=== PATIENT | male | born 1980 | race Caucasian/White ===

== ENCOUNTER → 2021-10-10 | Outpatient (CLI) | payer MEDICARE ==
[~2021-10-10] MED LIST: ATORVASTATIN CA10 MG PO; BACTRIM DS TAB1 EACH PO; ESOMEPRAZOLE MA40 M1 PO; GABAPENTIN TAB600 MG PO; LEVOTHYROXINE0.05 MG PO; PROAIR HFA0.09 MG/AC IH; PROLASTIN1000 MG/20 IV; SOTALOL HYDROCH80 MG PO; TRELEGY ELLIPT1 EACH IH
[2021-10-10 10:10] LABS: BASO # 0.06 K/mm3 (0.02-0.10); EOS # 0.22 K/mm3 (0.04-0.40); EOS % 2.7 % (0.0-4.0); HEMATOCRIT 46.9 % (42.0-52.0); HEMOGLOBIN 15.9 g/dL (13.5-18.0); LYMPH# 2.63 K/mm3 (1.50-4.00); MEAN CELL VOLUME 91 fl (78-100); MEAN CORPUSCULAR HEMOGLOBIN 31 pg (27-31); MEAN CORPUSCULAR HGB CONC 34 g/dL (33-37); MEAN PLATELET VOLUME 9.9 fl (7.4-10.4); MONO # 0.61 K/mm3 (0.20-0.80); NEU # 4.55 K/mm3 (1.40-6.50); PLATELET COUNT 245 K/mm3 (130-400); RED BLOOD COUNT 5.13 M/mm3 (4.20-5.60); RED CELL DISTRIBUTION WIDTH 12.7 % (11.5-14.5); WHITE BLOOD COUNT 8.1 K/mm3 (4.8-10.8)
[2021-10-10 10:51] LABS: POTASSIUM 4.1 mmol/L (3.5-5.1)
[2021-10-10 10:52] LABS: ALBUMIN 4.3 g/dL (3.5-5.0); CALCIUM 9.8 mg/dL (8.3-10.5); TOTAL BILIRUBIN 0.9 mg/dL (0.2-1.2); TOTAL PROTEIN 8.1 g/dL (6.4-8.3)
[2021-10-10 23:43] LABS: TESTOSTERONE 501 ng/dL (240-871)
== END ==
LOC: LAB 09:45
PROVIDERS: Internal Medicine
DX: K90.9 Intestinal malabsorption, unspecified (principal); K76.0 Fatty (change of) liver, not elsewhere classified; R73.03 Prediabetes; E03.9 Hypothyroidism, unspecified; N52.9 Male erectile dysfunction, unspecified

== ENCOUNTER 2021-10-18 23:41 | Emergency (ER) | payer MEDICARE ==
[~2021-10-18] VITALS: Ht 185.4 cm; Wt 100.0 kg
[2021-10-19] MEDS ORDERED: PROAIR HFA0.09 MG/AC IH (00:21)
[2021-10-19] MEDS ORDERED: ESOMEPRAZOLE MA40 M1 PO (00:21)
[2021-10-19] MEDS ORDERED: PROLASTIN1000 MG/20 IV (00:21)
[2021-10-19] MEDS ORDERED: SOTALOL HYDROCH80 MG PO (00:22)
[2021-10-19] MEDS ORDERED: BACTRIM DS TAB1 EACH PO (00:46)
[2021-10-19 01:02] VITALS: BP 117/90
[2021-10-19] MEDS ORDERED: GABAPENTIN TAB600 MG PO (01:08)
[2021-10-19] MEDS ORDERED: ATORVASTATIN CA10 MG PO (01:09)
[2021-10-19] MEDS ORDERED: LEVOTHYROXINE0.05 MG PO (01:09)
[2021-10-19] MEDS ORDERED: TRELEGY ELLIPT1 EACH IH (01:09)
== END 2021-10-19 01:02 | disposition home or self-care (01) ==
LOC: ED 23:41
DX: T81.40XA Infection following a procedure, unspecified, initial encounter (principal); J45.909 Unspecified asthma, uncomplicated; Z79.899 Other long term (current) drug therapy

== ENCOUNTER → 2021-11-06 | Outpatient (CLI) | payer MEDICARE | LOC: LAB 08:22 | DX: E55.9 Vitamin D deficiency, unspecified (principal) ==

== ENCOUNTER → 2021-12-06 | Outpatient (CLI) | payer MEDICARE | LOC: RAD 08:00 | DX: K76.0 Fatty (change of) liver, not elsewhere classified (principal); E88.01 Alpha-1-antitrypsin deficiency ==

== ENCOUNTER → 2022-01-01 | Outpatient (CLI) | payer MEDICARE ==
[2022-01-01 10:37] LABS: ALBUMIN 4.4 g/dL (3.5-5.0); POTASSIUM 4.3 mmol/L (3.5-5.1)
[2022-01-01 10:38] LABS: CALCIUM 9.5 mg/dL (8.3-10.5)
[2022-01-01 10:40] LABS: TOTAL PROTEIN 7.8 g/dL (6.4-8.3)
== END ==
LOC: LAB 08:53
PROVIDERS: Internal Medicine
DX: E88.01 Alpha-1-antitrypsin deficiency (principal); E03.9 Hypothyroidism, unspecified; K76.0 Fatty (change of) liver, not elsewhere classified; R73.03 Prediabetes; N52.9 Male erectile dysfunction, unspecified; K90.9 Intestinal malabsorption, unspecified; G47.33 Obstructive sleep apnea (adult) (pediatric); I47.2 Ventricular tachycardia; M54.2 Cervicalgia; H40.9 Unspecified glaucoma; E78.2 Mixed hyperlipidemia; Z28.3 Underimmunization status

== ENCOUNTER 2022-02-01 18:49 | Emergency (ER) | payer MEDICARE ==
[~2022-02-01] VITALS: Ht 182.9 cm; Wt 109.1 kg
[2022-02-01 21:28] LABS: BASO # 0.03 K/mm3 (0.02-0.10); EOS # 0.01 K/mm3 (0.04-0.40); EOS % 0.1 % (0.0-4.0); HEMATOCRIT 44.3 % (42.0-52.0); LYMPH# 1.35 K/mm3 (1.50-4.00); MEAN CELL VOLUME 88 fl (78-100); MEAN CORPUSCULAR HEMOGLOBIN 30 pg (27-31); MEAN CORPUSCULAR HGB CONC 34 g/dL (33-37); MEAN PLATELET VOLUME 9.7 fl (7.4-10.4); MONO # 0.85 K/mm3 (0.20-0.80); NEU # 7.23 K/mm3 (1.40-6.50); PLATELET COUNT 179 K/mm3 (130-400); RED BLOOD COUNT 5.04 M/mm3 (4.20-5.60); RED CELL DISTRIBUTION WIDTH 12.5 % (11.5-14.5); WHITE BLOOD COUNT 9.5 K/mm3 (4.8-10.8)
[2022-02-01 21:37] LABS: ALBUMIN 4.1 g/dL (3.5-5.0)
[2022-02-01 21:38] LABS: POTASSIUM 4.1 mmol/L (3.5-5.1); SODIUM 137 mmol/L (136-145)
[2022-02-01 21:39] LABS: CALCIUM 9.6 mg/dL (8.3-10.5)
[2022-02-01 21:40] LABS: GLUCOSE 118 mg/dL (75-110); TOTAL PROTEIN 7.8 g/dL (6.4-8.3)
[2022-02-01 21:41] LABS: CARBON DIOXIDE 21 mmol/L (22-29)
[2022-02-01 21:42] LABS: TOTAL BILIRUBIN 1.5 mg/dL (0.2-1.2)
[2022-02-01 21:45] LABS: AST-SGOT 32 U/L (5-34)
[2022-02-01 21:46] LABS: ALT/SGPT 42 U/L (0-55)
[2022-02-01 21:56] LABS: TROPONIN-I < 0.030 ng/mL (<0.030)
[2022-02-01] MEDS ORDERED: ZOFRAN ODT4 MG PO (22:33)
[2022-02-01 22:43] VITALS: BP 121/81
== END 2022-02-01 22:43 | disposition home or self-care (01) ==
LOC: ED 18:49
PROVIDERS: Physician Assistant
DX: U07.1 COVID-19 (principal); Z91.040 Latex allergy status; Z88.6 Allergy status to analgesic agent
CPT/HCPCS: J1885

== ENCOUNTER → 2022-02-02 | Outpatient (CLI) | payer MEDICARE ==
[~2022-02-02] VITALS: Ht 182.9 cm; Wt 109.1 kg
[2022-02-02] VITALS (7 sets, daily range): BP systolic 11–115; BP diastolic 68–96
[~2022-02-02] MED LIST changes: +ZOFRAN ODT4 MG PO
== END ==
LOC: AMSURD 10:33
DX: U07.1 COVID-19 (principal)
CPT/HCPCS: J1644; M0247; Q0247

== ENCOUNTER → 2022-02-22 | Outpatient (CLI) | payer MEDICARE ==
[2022-02-22 15:24] LABS: HEMATOCRIT 32.1 % (42.0-52.0); HEMOGLOBIN 10.2 g/dL (13.5-18.0); MEAN PLATELET VOLUME 8.8 fl (7.4-10.4); RED BLOOD COUNT 3.47 M/mm3 (4.20-5.60); RED CELL DISTRIBUTION WIDTH 14.3 % (11.5-14.5); WHITE BLOOD COUNT 10.4 K/mm3 (4.8-10.8)
[2022-02-22 15:34] LABS: ALBUMIN 2.6 g/dL (3.5-5.0)
[2022-02-22 15:35] LABS: CALCIUM 8.4 mg/dL (8.3-10.5)
[2022-02-22 15:36] LABS: TOTAL PROTEIN 8.3 g/dL (6.4-8.3)
[2022-02-22 15:38] LABS: TOTAL BILIRUBIN 0.6 mg/dL (0.2-1.2)
== END ==
LOC: LAB 08:27
PROVIDERS: Internal Medicine Infectious Disease
DX: R78.81 Bacteremia (principal); B95.61 Methicillin susceptible Staphylococcus aureus infection as the cause of diseases classified elsewhere

== ENCOUNTER → 2022-02-22 | Outpatient (RCR) | payer MEDICARE ==
[2022-02-17 15:32] VITALS: BP 115/75
[2022-02-18 15:41] VITALS: BP 105/70
[2022-02-19 15:07] VITALS: BP 109/73
[2022-02-20 14:56] VITALS: BP 113/77
[2022-02-21 14:50] VITALS: BP 117/76
[~2022-02-22] VITALS: Ht 182.9 cm; Wt 104.5 kg
[~2022-02-22] MED LIST changes: +LAMOTRIGINE25 M1 PO; +NAFCILLIN; +VITAMIN D325 MC4 PO
[2022-02-22 14:56] VITALS: BP 114/74
== END | disposition still patient (30) ==
LOC: AMSURD
DX: R78.81 Bacteremia (principal); B95.61 Methicillin susceptible Staphylococcus aureus infection as the cause of diseases classified elsewhere
CPT/HCPCS: J0878

== ENCOUNTER → 2022-02-23 | Outpatient (CLI) | payer MEDICARE ==
[~2022-02-23] MED LIST changes: -LAMOTRIGINE25 M1 PO; -NAFCILLIN; -VITAMIN D325 MC4 PO
== END ==
LOC: RAD 14:39
DX: J90 Pleural effusion, not elsewhere classified (principal); J12.82 Pneumonia due to coronavirus disease 2019; R91.8 Other nonspecific abnormal finding of lung field

== ENCOUNTER → 2022-03-01 | Outpatient (CLI) | payer MEDICARE ==
[~2022-03-01] MED LIST changes: +LAMOTRIGINE25 M1 PO; +NAFCILLIN; +VITAMIN D325 MC4 PO
[2022-03-01 16:20] LABS: BASO # 0.06 K/mm3 (0.02-0.10); EOS # 0.21 K/mm3 (0.04-0.40); EOS % 2.4 % (0.0-4.0); HEMATOCRIT 31.7 % (42.0-52.0); HEMOGLOBIN 10.1 g/dL (13.5-18.0); LYMPH# 2.21 K/mm3 (1.50-4.00); MEAN CELL VOLUME 91 fl (78-100); MEAN CORPUSCULAR HEMOGLOBIN 29 pg (27-31); MEAN CORPUSCULAR HGB CONC 32 g/dL (33-37); MEAN PLATELET VOLUME 8.9 fl (7.4-10.4); NEU # 5.87 K/mm3 (1.40-6.50); PLATELET COUNT 296 K/mm3 (130-400); RED CELL DISTRIBUTION WIDTH 14.6 % (11.5-14.5); WHITE BLOOD COUNT 8.9 K/mm3 (4.8-10.8)
[2022-03-01 16:22] LABS: POTASSIUM 3.7 mmol/L (3.5-5.1)
[2022-03-01 16:23] LABS: CALCIUM 9.1 mg/dL (8.3-10.5)
[2022-03-01 16:24] LABS: TOTAL PROTEIN 8.8 g/dL (6.4-8.3)
[2022-03-01 16:26] LABS: TOTAL BILIRUBIN 0.7 mg/dL (0.2-1.2)
== END ==
LOC: LAB 08:30
PROVIDERS: Internal Medicine
DX: R78.81 Bacteremia (principal); B95.61 Methicillin susceptible Staphylococcus aureus infection as the cause of diseases classified elsewhere

== ENCOUNTER → 2022-03-02 | Outpatient (CLI) | payer MEDICARE | LOC: RAD 14:52 | DX: J90 Pleural effusion, not elsewhere classified (principal); J12.82 Pneumonia due to coronavirus disease 2019 ==

== ENCOUNTER 2022-03-04 15:01 | Outpatient (RCR) | payer MEDICARE ==
[2022-02-23 14:45] VITALS: BP 114/77
[2022-02-24 14:47] VITALS: BP 115/78
[2022-02-25 14:50] VITALS: BP 119/75
[2022-02-26 15:11] VITALS: BP 132/67
[2022-02-27 14:58] VITALS: BP 124/82
[2022-02-28 15:02] VITALS: BP 117/78
[2022-03-01 15:31] VITALS: BP 118/75
[2022-03-02 14:54] VITALS: BP 130/81
--- NOTE | 2022-03-02 15:00 | NUR ---
Patient reports he is to continue dressing changes, per protocol. Patient will return on 03/04/22 for next PICC line dressing change. He seen Dr. Hammer prior to visit outpatient. Patient instructed to continue PICC line until notified by Dr. Hammer. He states, "we don't want to pull it until they know there is no infection."
[~2022-03-04] VITALS: Ht 182.9 cm; Wt 104.5 kg
[~2022-03-04 15:01] MED LIST changes: -LAMOTRIGINE25 M1 PO; -NAFCILLIN; -VITAMIN D325 MC4 PO
[2022-03-04 15:15] VITALS: BP 116/78
[2022-03-06] MEDS ORDERED: LAMOTRIGINE25 M1 PO (18:54)
[2022-03-08] MEDS ORDERED: VITAMIN D325 MC4 PO (08:50)
[2022-03-21] MEDS ORDERED: NAFCILLIN (18:18)
== END 2022-03-24 | disposition home or self-care (01) ==
LOC: AMSURD
DX: R78.81 Bacteremia (principal); B95.61 Methicillin susceptible Staphylococcus aureus infection as the cause of diseases classified elsewhere
CPT/HCPCS: J0878

== ENCOUNTER 2022-03-06 18:38 | Emergency (ER) | payer MEDICARE ==
[~2022-03-06] VITALS: Ht 190.5 cm; Wt 103.0 kg
[2022-03-06] MEDS ORDERED: LAMOTRIGINE25 M1 PO (18:54)
[2022-03-06 19:52] LABS: BASO # 0.03 K/mm3 (0.02-0.10); EOS # 0.09 K/mm3 (0.04-0.40); HEMATOCRIT 32.6 % (42.0-52.0); HEMOGLOBIN 10.5 g/dL (13.5-18.0); LYMPH# 1.17 K/mm3 (1.50-4.00); MEAN CELL VOLUME 91 fl (78-100); MEAN CORPUSCULAR HEMOGLOBIN 29 pg (27-31); MEAN CORPUSCULAR HGB CONC 32 g/dL (33-37); MEAN PLATELET VOLUME 8.6 fl (7.4-10.4); MONO # 0.67 K/mm3 (0.20-0.80); NEU # 7.45 K/mm3 (1.40-6.50); PLATELET COUNT 251 K/mm3 (130-400); RED BLOOD COUNT 3.59 M/mm3 (4.20-5.60); RED CELL DISTRIBUTION WIDTH 14.6 % (11.5-14.5); WHITE BLOOD COUNT 9.4 K/mm3 (4.8-10.8)
[2022-03-06 20:00] LABS: ALBUMIN 3.2 g/dL (3.5-5.0); POTASSIUM 4.3 mmol/L (3.5-5.1)
[2022-03-06 20:01] LABS: CALCIUM 9.3 mg/dL (8.3-10.5)
[2022-03-06 20:03] LABS: TOTAL PROTEIN 8.7 g/dL (6.4-8.3)
[2022-03-06 20:04] LABS: TOTAL BILIRUBIN 1.5 mg/dL (0.2-1.2)
[2022-03-06 22:20] LABS: URINE APPEARANCE CLEAR; URINE BILIRUBIN NEGATIVE (NEGATIVE); URINE COLOR YELLOW; URINE GLUCOSE NEGATIVE (NEGATIVE); URINE KETONE NEGATIVE (NEGATIVE); URINE NITRATE NEGATIVE (NEGATIVE); URINE PROTEIN(semi-quant) NEGATIVE (NEGATIVE); URINE UROBILINOGEN NORMAL (NORMAL)
[2022-03-06 22:21] LABS: URINE BLOOD 50 ery/uL (NEGATIVE); URINE LEUKOCYTE ESTERASE NEGATIVE (NEGATIVE); URINE MUCUS PRESENT (NOT PRESENT); URINE WBC 0-1 /hpf (0-3)
[2022-03-06 23:46] VITALS: BP 118/75
== END 2022-03-06 23:46 | disposition home or self-care (01) ==
LOC: ED 18:38
PROVIDERS: Physician Assistant
DX: R50.9 Fever, unspecified (principal); R53.81 Other malaise; Z86.16 Personal history of COVID-19; Z91.040 Latex allergy status
CPT/HCPCS: J1885; J7030

== ENCOUNTER 2022-03-08 08:39 | Emergency (ER) | payer MEDICARE ==
[~2022-03-08] VITALS: Wt 99.5 kg
[~2022-03-08 08:39] MED LIST changes: +LAMOTRIGINE25 M1 PO
[2022-03-08] MEDS ORDERED: VITAMIN D325 MC4 PO (08:50)
[2022-03-08 09:22] LABS: HEMATOCRIT 31.3 % (42.0-52.0); HEMOGLOBIN 10.2 g/dL (13.5-18.0); MEAN CELL VOLUME 89 fl (78-100); MEAN CORPUSCULAR HEMOGLOBIN 29 pg (27-31); MEAN CORPUSCULAR HGB CONC 33 g/dL (33-37); MEAN PLATELET VOLUME 9.2 fl (7.4-10.4); PLATELET COUNT 161 K/mm3 (130-400); RED BLOOD COUNT 3.53 M/mm3 (4.20-5.60); RED CELL DISTRIBUTION WIDTH 14.7 % (11.5-14.5)
[2022-03-08 09:48] LABS: POTASSIUM 3.7 mmol/L (3.5-5.1)
[2022-03-08 09:50] LABS: CALCIUM 8.9 mg/dL (8.3-10.5)
[2022-03-08 09:51] LABS: TOTAL PROTEIN 7.8 g/dL (6.4-8.3)
[2022-03-08 09:53] LABS: TOTAL BILIRUBIN 1.8 mg/dL (0.2-1.2)
[2022-03-08 10:26] LABS: LYMPHOCYTE 8 % (20-51); MONOCYTE 7 % (3-10); NEUTROPHILS 85 % (42-75)
[2022-03-08 16:19] VITALS: BP 105/56
== END 2022-03-08 15:33 | disposition short-term general hospital (02) ==
LOC: ED 08:39
PROVIDERS: Family Medicine
DX: A49.01 Methicillin susceptible Staphylococcus aureus infection, unspecified site (principal); Z91.040 Latex allergy status; Z20.822 Contact with and (suspected) exposure to COVID-19
CPT/HCPCS: J0690; J2405; J7030

== ENCOUNTER 2022-03-21 18:13 | Emergency (ER) | payer MEDICARE ==
[~2022-03-21] VITALS: Ht 190.5 cm; Wt 96.7 kg
[~2022-03-21 18:13] MED LIST changes: +VITAMIN D325 MC4 PO
[2022-03-21] MEDS ORDERED: NAFCILLIN (18:18)
[2022-03-21 19:49] VITALS: BP 107/68
== END 2022-03-21 19:50 | disposition home or self-care (01) ==
LOC: ED 18:13
DX: T78.40XA Allergy, unspecified, initial encounter (principal); A49.01 Methicillin susceptible Staphylococcus aureus infection, unspecified site; Z91.040 Latex allergy status; Z86.16 Personal history of COVID-19
CPT/HCPCS: J1644

== ENCOUNTER → 2022-03-26 | Outpatient (CLI) | payer MEDICARE ==
[~2022-03-26] MED LIST changes: +NAFCILLIN
[2022-03-27 09:27] LABS: ALBUMIN 3.7 g/dL (3.5-5.0); POTASSIUM 4.3 mmol/L (3.5-5.1)
[2022-03-27 09:28] LABS: CALCIUM 9.6 mg/dL (8.3-10.5)
[2022-03-27 09:29] LABS: TOTAL PROTEIN 8.6 g/dL (6.4-8.3)
[2022-03-27 09:31] LABS: TOTAL BILIRUBIN 0.2 mg/dL (0.2-1.2)
[2022-03-27 11:26] LABS: HEMATOCRIT 35.2 % (42.0-52.0); HEMOGLOBIN 10.6 g/dL (13.5-18.0); MEAN CELL VOLUME 96 fl (78-100); MEAN CORPUSCULAR HEMOGLOBIN 29 pg (27-31); MEAN CORPUSCULAR HGB CONC 30 g/dL (33-37); MEAN PLATELET VOLUME 8.9 fl (7.4-10.4); PLATELET COUNT 565 K/mm3 (130-400); RED BLOOD COUNT 3.66 M/mm3 (4.20-5.60); RED CELL DISTRIBUTION WIDTH 17.3 % (11.5-14.5); WHITE BLOOD COUNT 7.5 K/mm3 (4.8-10.8)
[2022-03-27 11:27] LABS: EOS % 2.3 % (0.0-4.0); NEU # 3.74 K/mm3 (1.40-6.50)
[2022-03-27 11:28] LABS: BASO # 0.11 K/mm3 (0.02-0.10); EOS # 0.17 K/mm3 (0.04-0.40); LYMPH# 2.84 K/mm3 (1.50-4.00); MONO # 0.58 K/mm3 (0.20-0.80)
== END ==
LOC: LAB 17:05
PROVIDERS: Internal Medicine
DX: A41.01 Sepsis due to Methicillin susceptible Staphylococcus aureus (principal)

== ENCOUNTER → 2022-04-02 | Outpatient (CLI) | payer MEDICARE ==
[2022-04-02 14:46] LABS: BASO # 0.05 K/mm3 (0.02-0.10); EOS # 0.29 K/mm3 (0.04-0.40); EOS % 4.4 % (0.0-4.0); HEMATOCRIT 33.5 % (42.0-52.0); HEMOGLOBIN 10.8 g/dL (13.5-18.0); LYMPH# 2.29 K/mm3 (1.50-4.00); MEAN CELL VOLUME 92 fl (78-100); MEAN CORPUSCULAR HEMOGLOBIN 30 pg (27-31); MEAN CORPUSCULAR HGB CONC 32 g/dL (33-37); MEAN PLATELET VOLUME 9.1 fl (7.4-10.4); MONO # 0.54 K/mm3 (0.20-0.80); NEU # 3.45 K/mm3 (1.40-6.50); PLATELET COUNT 316 K/mm3 (130-400); RED BLOOD COUNT 3.64 M/mm3 (4.20-5.60); RED CELL DISTRIBUTION WIDTH 17.5 % (11.5-14.5); WHITE BLOOD COUNT 6.6 K/mm3 (4.8-10.8)
[2022-04-02 14:54] LABS: ALBUMIN 3.7 g/dL (3.5-5.0); POTASSIUM 3.6 mmol/L (3.5-5.1)
[2022-04-02 14:55] LABS: CALCIUM 9.3 mg/dL (8.3-10.5)
[2022-04-02 14:56] LABS: TOTAL PROTEIN 7.9 g/dL (6.4-8.3)
[2022-04-02 14:58] LABS: TOTAL BILIRUBIN 0.6 mg/dL (0.2-1.2)
== END ==
LOC: LAB 13:54
PROVIDERS: Internal Medicine
DX: A41.01 Sepsis due to Methicillin susceptible Staphylococcus aureus (principal)

== ENCOUNTER → 2022-04-10 | Outpatient (CLI) | payer MEDICARE ==
[2022-04-10 15:32] LABS: BASO # 0.03 K/mm3 (0.02-0.10); EOS # 0.27 K/mm3 (0.04-0.40); EOS % 5.2 % (0.0-4.0); HEMATOCRIT 36.5 % (42.0-52.0); HEMOGLOBIN 11.7 g/dL (13.5-18.0); MEAN CELL VOLUME 93 fl (78-100); MEAN CORPUSCULAR HEMOGLOBIN 30 pg (27-31); MEAN CORPUSCULAR HGB CONC 32 g/dL (33-37); MEAN PLATELET VOLUME 9.4 fl (7.4-10.4); MONO # 0.45 K/mm3 (0.20-0.80); PLATELET COUNT 234 K/mm3 (130-400); RED BLOOD COUNT 3.93 M/mm3 (4.20-5.60); RED CELL DISTRIBUTION WIDTH 16.4 % (11.5-14.5); WHITE BLOOD COUNT 5.2 K/mm3 (4.8-10.8)
[2022-04-10 15:48] LABS: ALBUMIN 3.9 g/dL (3.5-5.0)
[2022-04-10 15:49] LABS: POTASSIUM 3.5 mmol/L (3.5-5.1)
[2022-04-10 15:50] LABS: CALCIUM 9.5 mg/dL (8.3-10.5)
[2022-04-10 15:51] LABS: TOTAL PROTEIN 7.7 g/dL (6.4-8.3)
[2022-04-10 15:53] LABS: TOTAL BILIRUBIN 0.9 mg/dL (0.2-1.2)
== END ==
LOC: LAB 15:24
PROVIDERS: Internal Medicine
DX: A41.01 Sepsis due to Methicillin susceptible Staphylococcus aureus (principal)

== ENCOUNTER → 2022-04-16 | Outpatient (CLI) | payer MEDICARE ==
[2022-04-16 15:08] LABS: BASO # 0.06 K/mm3 (0.02-0.10); EOS # 0.29 K/mm3 (0.04-0.40); EOS % 4.9 % (0.0-4.0); HEMATOCRIT 39.9 % (42.0-52.0); LYMPH# 2.55 K/mm3 (1.50-4.00); MEAN CELL VOLUME 91 fl (78-100); MEAN CORPUSCULAR HEMOGLOBIN 30 pg (27-31); MEAN CORPUSCULAR HGB CONC 33 g/dL (33-37); MEAN PLATELET VOLUME 9.7 fl (7.4-10.4); NEU # 2.51 K/mm3 (1.40-6.50); PLATELET COUNT 243 K/mm3 (130-400); RED BLOOD COUNT 4.38 M/mm3 (4.20-5.60); RED CELL DISTRIBUTION WIDTH 14.8 % (11.5-14.5); WHITE BLOOD COUNT 5.9 K/mm3 (4.8-10.8)
[2022-04-16 16:01] LABS: ALBUMIN 4.2 g/dL (3.5-5.0); SODIUM 142 mmol/L (136-145)
[2022-04-16 16:02] LABS: CALCIUM 9.6 mg/dL (8.3-10.5)
[2022-04-16 16:04] LABS: GLUCOSE 100 mg/dL (75-110); TOTAL PROTEIN 7.9 g/dL (6.4-8.3)
[2022-04-16 16:05] LABS: CARBON DIOXIDE 23 mmol/L (22-29)
[2022-04-16 16:06] LABS: TOTAL BILIRUBIN 0.7 mg/dL (0.2-1.2)
[2022-04-16 16:09] LABS: AST-SGOT 22 U/L (5-34)
[2022-04-16 16:54] LABS: ALT/SGPT < 6 U/L (0-55)
== END ==
LOC: LAB 14:41
PROVIDERS: Internal Medicine
DX: A41.01 Sepsis due to Methicillin susceptible Staphylococcus aureus (principal)

== ENCOUNTER → 2022-04-22 | Outpatient (CLI) | payer MEDICARE ==
--- NOTE | 2022-04-22 23:06 | NUR ---
pt comes to ER to have dsng changed on existing PICC line. Old drsng removed and site cleansed and drsng changed. Central line kit used and PICC Statlock used.
== END ==
LOC: ED 22:16 → EDSTATUS 22:55 → AMSURD 22:56
DX: I38 Endocarditis, valve unspecified (principal); E88.01 Alpha-1-antitrypsin deficiency
CPT/HCPCS: 19898

== ENCOUNTER → 2022-05-07 | Outpatient (CLI) | payer MEDICARE | LOC: LAB 10:38 → RAD 10:38 | DX: J98.4 Other disorders of lung (principal); J92.9 Pleural plaque without asbestos | CPT/HCPCS: Q9967 ==

== ENCOUNTER → 2022-05-29 | Outpatient (CLI) | payer MEDICARE ==
[2022-05-29 10:06] LABS: BASO # 0.02 K/mm3 (0.02-0.10); EOS # 0.18 K/mm3 (0.04-0.40); EOS % 3.1 % (0.0-4.0); HEMATOCRIT 41.1 % (42.0-52.0); HEMOGLOBIN 13.8 g/dL (13.5-18.0); LYMPH# 2.41 K/mm3 (1.50-4.00); MEAN CELL VOLUME 88 fl (78-100); MEAN CORPUSCULAR HEMOGLOBIN 30 pg (27-31); MEAN CORPUSCULAR HGB CONC 34 g/dL (33-37); MEAN PLATELET VOLUME 8.9 fl (7.4-10.4); MONO # 0.54 K/mm3 (0.20-0.80); NEU # 2.66 K/mm3 (1.40-6.50); PLATELET COUNT 221 K/mm3 (130-400); RED BLOOD COUNT 4.66 M/mm3 (4.20-5.60); WHITE BLOOD COUNT 5.8 K/mm3 (4.8-10.8)
[2022-05-29 10:21] LABS: ALBUMIN 4.1 g/dL (3.5-5.0)
[2022-05-29 10:22] LABS: POTASSIUM 3.6 mmol/L (3.5-5.1)
[2022-05-29 10:23] LABS: CALCIUM 9.1 mg/dL (8.3-10.5)
[2022-05-29 10:24] LABS: TOTAL PROTEIN 7.3 g/dL (6.4-8.3)
[2022-05-29 11:29] LABS: ERYTHROCYTE SEDIMENTATION RATE 8 mm/hr (0-15)
== END ==
LOC: LAB 09:44
PROVIDERS: Internal Medicine
DX: E88.01 Alpha-1-antitrypsin deficiency (principal); A41.01 Sepsis due to Methicillin susceptible Staphylococcus aureus; J12.82 Pneumonia due to coronavirus disease 2019; F31.9 Bipolar disorder, unspecified; M54.2 Cervicalgia; I33.0 Acute and subacute infective endocarditis; I47.2 Ventricular tachycardia; G47.33 Obstructive sleep apnea (adult) (pediatric)

== ENCOUNTER → 2022-05-30 | Outpatient (CLI) | payer MEDICARE | LOC: RAD 07:24 | DX: K76.0 Fatty (change of) liver, not elsewhere classified (principal); E88.01 Alpha-1-antitrypsin deficiency ==

== ENCOUNTER 2022-06-13 20:36 | Emergency (ER) | payer MEDICARE ==
[2022-06-13 21:52] VITALS: BP 148/88
== END 2022-06-13 21:54 | disposition home or self-care (01) ==
LOC: ED 20:36
DX: S62.630A Displaced fracture of distal phalanx of right index finger, initial encounter for closed fracture (principal); Z91.040 Latex allergy status; Z88.5 Allergy status to narcotic agent; Z86.16 Personal history of COVID-19; W23.0XXA Caught, crushed, jammed, or pinched between moving objects, initial encounter

== ENCOUNTER 2022-06-25 19:38 | Emergency (ER) | payer MEDICARE ==
[~2022-06-25] VITALS: Ht 190.5 cm; Wt 107.7 kg
[2022-06-25 19:46] VITALS: BP 122/73
[2022-06-25 20:15] LABS: BASO # 0.03 K/mm3 (0.02-0.10); EOS # 0.15 K/mm3 (0.04-0.40); EOS % 2.4 % (0.0-4.0); HEMATOCRIT 39.6 % (42.0-52.0); HEMOGLOBIN 13.5 g/dL (13.5-18.0); LYMPH# 1.33 K/mm3 (1.50-4.00); MEAN CELL VOLUME 87 fl (78-100); MEAN CORPUSCULAR HEMOGLOBIN 30 pg (27-31); MEAN CORPUSCULAR HGB CONC 34 g/dL (33-37); MEAN PLATELET VOLUME 9.5 fl (7.4-10.4); MONO # 0.75 K/mm3 (0.20-0.80); NEU # 3.94 K/mm3 (1.40-6.50); PLATELET COUNT 210 K/mm3 (130-400); RED BLOOD COUNT 4.58 M/mm3 (4.20-5.60); RED CELL DISTRIBUTION WIDTH 12.6 % (11.5-14.5); WHITE BLOOD COUNT 6.2 K/mm3 (4.8-10.8)
[2022-06-25 20:26] LABS: ALBUMIN 4.1 g/dL (3.5-5.0); STREP SCREEN NEGATIVE (NEGATIVE)
[2022-06-25 20:27] LABS: POTASSIUM 3.5 mmol/L (3.5-5.1)
[2022-06-25 20:28] LABS: CALCIUM 9.4 mg/dL (8.3-10.5)
[2022-06-25 20:31] LABS: TOTAL BILIRUBIN 1.7 mg/dL (0.2-1.2)
[2022-06-25 21:03] LABS: ERYTHROCYTE SEDIMENTATION RATE 11 mm/hr (0-15)
== END 2022-06-25 21:09 | disposition home or self-care (01) ==
LOC: ED 19:38
PROVIDERS: Physician Assistant
DX: U07.1 COVID-19 (principal); Z91.040 Latex allergy status; Z87.891 Personal history of nicotine dependence

== ENCOUNTER → 2022-06-26 | Outpatient (CLI) | payer MEDICARE ==
[~2022-06-26] VITALS: Ht 190.5 cm; Wt 107.7 kg
[2022-06-26 17:19] VITALS: BP 121/68
[2022-06-26 17:30] VITALS: BP 109/66
[2022-06-26 17:45] VITALS: BP 120/75
[2022-06-26 18:00] VITALS: BP 113/69
[2022-06-26 18:15] VITALS: BP 115/73
== END ==
LOC: AMSURD 16:20
DX: Z23 Encounter for immunization (principal)
CPT/HCPCS: M0222

== ENCOUNTER → 2022-09-27 | Outpatient (CLI) | payer MEDICARE | LOC: RAD 15:25 | DX: J01.90 Acute sinusitis, unspecified (principal) ==

== ENCOUNTER → 2022-10-31 | Outpatient (CLI) | payer MEDICARE | LOC: RAD 13:00 → VAS 13:00 | DX: R55 Syncope and collapse (principal) ==

== ENCOUNTER → 2022-11-01 | Outpatient (CLI) | payer MEDICARE | LOC: RAD 14:10 | DX: R90.82 White matter disease, unspecified (principal) | CPT/HCPCS: A9575 ==

== ENCOUNTER → 2022-11-03 | Outpatient (CLI) | payer MEDICARE ==
[~2022-11-03] VITALS: Ht 190.5 cm; Wt 105.9 kg
== END ==
LOC: AMSURD 08:49
DX: E88.01 Alpha-1-antitrypsin deficiency (principal)
CPT/HCPCS: 19898

== ENCOUNTER → 2023-02-22 | Outpatient (CLI) | payer MEDICARE, MEDICAID ==
[~2023-02-22] VITALS: Ht 188 cm; Wt 111.8 kg
[~2023-02-22] MED LIST changes: +KETOROLAC10 MG PO; +TIZANIDINE HYDRO4 MG PO
[2023-02-22 02:43] VITALS: BP 127/76
== END | disposition still patient (30) ==
LOC: AMSURD 02:34
DX: E88.01 Alpha-1-antitrypsin deficiency (principal)
CPT/HCPCS: 19898

== ENCOUNTER → 2023-02-24 | Outpatient (CLI) | payer MEDICARE, MEDICAID | LOC: AMSURD 17:37 | DX: E88.01 Alpha-1-antitrypsin deficiency (principal) | CPT/HCPCS: 19898 ==

== ENCOUNTER → 2023-12-19 | Outpatient (CLI) | payer MEDICARE ==
[~2023-12-19] MED LIST changes: +NORCO 325 MG-51 TA1 PO
== END ==
LOC: RAD 14:51
DX: M51.17 Intervertebral disc disorders with radiculopathy, lumbosacral region (principal)

== ENCOUNTER → 2024-01-28 | Day surgery (SDC) | payer MEDICARE, MEDICAID ==
[~2024-01-28] VITALS: Ht 190.5 cm; Wt 102.1 kg
[~2024-01-28] MED LIST changes: +Iohexol 300 - 10 ML VIAL IV ONE; +Lidocaine PF 2% (20 MG/ML) 2 ML VIAL IJ ONE
== END | disposition home or self-care (01) ==
LOC: MSO 10:24
DX: M54.59 Other low back pain (principal); G89.29 Other chronic pain; J45.909 Unspecified asthma, uncomplicated; G47.33 Obstructive sleep apnea (adult) (pediatric); E88.01 Alpha-1-antitrypsin deficiency; M51.36 Other intervertebral disc degeneration, lumbar region; M48.07 Spinal stenosis, lumbosacral region; M12.88 Other specific arthropathies, not elsewhere classified, other specified site; M41.9 Scoliosis, unspecified; M47.896 Other spondylosis, lumbar region; M54.16 Radiculopathy, lumbar region; F17.200 Nicotine dependence, unspecified, uncomplicated
CPT/HCPCS: J1100; Q9967

== ENCOUNTER → 2024-10-26 | Outpatient (REF) | payer MEDICARE, MEDICAID ==
[~2024-10-26] MED LIST changes: -Iohexol 300 - 10 ML VIAL IV ONE; -Lidocaine PF 2% (20 MG/ML) 2 ML VIAL IJ ONE
== END ==
LOC: LAB 14:17
DX: R50.9 Fever, unspecified (principal); Z20.822 Contact with and (suspected) exposure to COVID-19